=== PATIENT | male | born 1940 | race Caucasian/White ===

== ENCOUNTER 2017-03-27 14:43 | Emergency (ER) | payer MEDICARE ==
[~2017-03-27] VITALS: Ht 182.9 cm; Wt 81.6 kg
--- NOTE | ~2017-03-27 | CT4 ---
[facility] A Service of [facility] & [facility] RADIOLOGY TEXT RESULTS PATIENT: MARGARITA GROVE LOCATION: [facility] : 39 UNIT #: [id number] AGE: [address]: Morteza Barrios MD SEX: M ORDER DR: [id number] [facility] [address] [place], [place] [address] [id number] E MR#: [id number] Acc #: [id number] NAME: MARGARITA GROVE : 1940 SEX: M STUDY DATE/TIME: 03/27/2017 15:45 UNIT: [facility] ROOM: STUDY DESCRIPTION: CT Abd and Pelv Wo Cont Attending Physician: Morteza Barrios M.D. Referring Physician: No Primary Care Physician Ordering Physician: Morteza Barrios M.D. Primary Care Physician: No Primary Care Physician MEDICAL IMAGING REPORT This report is preliminary unless electronic signature is present EXAM CT abdomen and pelvis, 03/27/2017. HISTORY Pain. Hematuria since 11:30 today. Bleeding from penis times today. History of kidney stones. TECHNIQUE CT abdomen and pelvis performed without administration of oral or intravenous contrast. This CT exam was performed with one or more of the following radiation dose reduction techniques: automatic exposure control, adjustment of mA and/or kV according to patient size, and iterative reconstruction. COMPARISON No comparisons. Comparison to prior study is recommended if available. FINDINGS Emphysema at the lung bases. There is some mild bronchiectatic change as well without clear indication of mucous plugging. Dependent atelectasis. Trace pleural effusions, right greater than left. Not drainable fluid collections. Heart upper limits of normal in size to borderline enlarged. The liver is unremarkable. Uncomplicated cholelithiasis. Spleen, pancreas, adrenal glands unremarkable. Left kidney and ureter unremarkable to the level of the sigmoid colon. The most distal left ureter is poorly visualized. In region of the left ureterovesical junction, there is a large bladder diverticulum measuring 5.2 cm x 3.9 cm x 4.3 cm. There are 1 or 2 calculi in the dependent portion of this diverticulum measuring up to 7-8 mm in diameter. It is possible that the left ureter could be entering the diverticulum, but the distal left ureter is, as noted, very difficult to visualize. There is inflammatory haziness and stranding in the fat adjacent to this diverticulum and the diverticular wall appears mildly thickened. I do not see a focal STS. [facility] A Service of [facility] RADIOLOGY TEXT RESULTS PATIENT: MARGARITA GROVE LOCATION: [facility] : 39 UNIT #: [id number] AGE: [address]: Morteza Barrios MD SEX: M ORDER DR: suspicious mass lesion. Diverticular infection is a consideration. This might be further evaluated with contrast-enhanced study. There are multiple other smaller bladder diverticula bilaterally. The prostate is enlarged measuring approximately 6.1 cm x 5 cm x 7.3 cm. It exerts mass effect on the inferior bladder. Patient's hematuria could be a consequence of the abnormal left bladder diverticulum or the enlarged prostate. Correlate with serum PSA. Consider further evaluation with prostate ultrasound when clinically appropriate for the patient. The right kidney shows no hydronephrosis or nephrolithiasis. There is a large mildly complicated cyst exophytic from the lower pole measuring 8.8 cm x 9.5 cm x 8.5 cm. It contains some thin calcifications along its anterior inferior aspect probably in a septation. Best further evaluated with multiphase contrast-enhanced CT or ultrasound unless there are outside studies for comparison. There is no free fluid in the pelvis. CT PELVIS: No inguinal adenopathy. Bilateral inguinal hernias, more pronounced on the right than left. There is a long loop of distal small bowel extending into the right inguinal hernia. This loop measures approximately 15 cm in length. There is a much shorter knuckle of sigmoid colon extending into the left inguinal hernia. A very short loop of small bowel probably extends into the left inguinal hernia as well. There is no evidence of obstruction or incarceration. Incompletely visualized fluid density structure in the upper right hemiscrotum measuring at least 7.3 cm x 6.7 cm x 3.4 cm. Large right hydrocele could be considered. Cystic lesion within the scrotal contents could be considered. There is no pelvic or retroperitoneal adenopathy. The distal esophagus, stomach, and small bowel unremarkable beyond involvement in inguinal hernias as described. Appendix normal. Colon shows no suspicious abnormality. There is a large stool burden in the colon without pathologic dilatation. There is sigmoid diverticulosis, uncomplicated. The vascular structures show atherosclerotic arterial calcifications. No aneurysm. Bony structures show no acute abnormality. 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 Associated bilateral foraminal narrowing. No resulting spinal stenosis. IMPRESSION 1. Abnormal examination. Please see the complete dictation above for full details. There is no evidence of hydronephrosis or nephrolithiasis bilaterally. There is a left inferolateral bladder diverticulum measuring up to 5.2 cm in diameter. There is mild prominence of the diverticular wall and there is adjacent fat stranding and haziness. I do not see a distinct mural mass lesion. The adjacent inflammatory change may be an indication of underlying diverticular inflammation. Whether this relates to the patient's stated hematuria is unclear. In the absence of prior studies for comparison, this could be further evaluated with contrast-enhanced CT. Please note that the left kidney shows no hydronephrosis and there is no hydroureter. The distal left ureter beyond the level of the sigmoid colon is not clearly identified. It could be entering [facility] A Service of [facility] RADIOLOGY TEXT RESULTS PATIENT: MARGARITA GROVE [id number] 38 UNIT #: [id number] AGE: [address]: Morteza Barrios MD SEX: M ORDER DR: the above described inflamed left diverticulum. 2. Calculi within the left inflamed diverticulum, 1 or 2, measuring up to about 7-8 mm in diameter. 3. Multiple other smaller bladder diverticula without inflammatory change. 4. Enlarged prostate measuring up to 7.3 cm in maximum diameter. Exerting significant mass effect on inferior urinary bladder. Correlate with serum PSA. If warranted and when clinically appropriate for the patient, consider assessment with prostatic ultrasound. 5. Large right renal cyst exophytic from lower pole and measuring up to 9.5 cm in diameter. Along its anterior aspect, there are some curvilinear calcifications probably representing septal calcifications. I would favor that this is a mildly complicated cyst and in the absence of prior studies demonstrating stability, it is best further evaluated with multiphase contrast-enhanced CT or ultrasound. 6. Uncomplicated cholelithiasis. 7. Large incompletely visualized fluid density structure in the lower right inguinal canal/upper right hemiscrotum measuring up to at least 7.6 cm in diameter. This may reflect large right hydrocele or a cystic structure in the right milan scrotal contents. Again, if not previously characterized, it is best evaluated with ultrasound. 8. Prominent bilateral inguinal hernias, right larger than left. Approximately 15 cm long loop of distal small bowel in the right inguinal hernia without complication. [place] loop of small bowel and a knuckle of sigmoid colon in the left inguinal hernia without complication. 9. [id number] stool burden in the colon. This may be a reflection of constipation. It could be physiologic in nature. No obstructing process. No pathologic dilatation. 10. Uncomplicated sigmoid diverticulosis. 11. Emphysema and dependent atelectasis lung bases. 12. Trace bilateral pleural effusions, right greater than left. Not drainable fluid collections. 13. 1 cm anterolisthesis, L5 on S1, due to bilateral L5 spondylolysis. No acute-appearing bony abnormality. Dictated by... Keith Knight M.D. THIS IS AN ELECTRONICALLY VERIFIED REPORT Keith Knight M.D. at 03/29/2017 7:36 AM RICH/vaughn TD: 03/28/2017 05:56 JOB #: [id number] MEDICAL IMAGING REPORT [facility]. [facility] A Service of [facility] & [facility] RADIOLOGY TEXT RESULTS PATIENT: MARGARITA GROVE LOCATION: [facility] #: [id number] : 38 UNIT #: [id number] AGE: [address]: Morteza Barrios MD SEX: M ORDER DR: Page 1 of 1 COPY
[2017-03-27 15:32] LABS: BASOPHIL# 0.1 X10e3 (0-0.3); BASOPHIL% 1.1 % (0-2.5); EOSINOPHIL# 0.1 X10e3 (0-0.7); HEMATOCRIT 40.1 % (38.0-50.0); HEMOGLOBIN 13.5 gm/dL (13.0-16.0); LYMPHOCYTE# 1.1 X10e3 (1.0-3.5); LYMPHOCYTE% 15.2 % (17.0-45.0); MEAN CELL VOLUME 86.2 FL (83-96); MEAN CORPUSCULAR HEMOGLOBIN 29.1 PG (28-34); MEAN CORPUSCULAR HGB CONC 33.8 g/dL (30-36); MEAN PLATELET VOLUME 8.5 FL (6.5-11.5); MONOCYTE# 0.4 X10e3 (0-1.0); MONOCYTE% 5.3 % (3.0-12.0); NEUTROPHIL# 5.6 X10e3 (1.5-7.1); NEUTROPHIL% 76.4 % (40-75); PLATELET COUNT 167 X10e3 (140-420); RED BLOOD COUNT 4.65 X10e (3.90-5.60); RED CELL DISTRIBUTION WIDTH 13.4 % (11.0-15.5); WHITE BLOOD COUNT 7.3 X10e3 (4.0-10.5)
[2017-03-27 15:36] LABS: URINE SOURCE CLEAN CATCH
[2017-03-27 15:37] LABS: DIFF IND NO
[2017-03-27 15:46] LABS: URINE APPEARANCE TURBID; URINE BILIRUBIN NEG (NEG); URINE BLOOD 3+ (NEG); URINE COLOR DK YELLOW; URINE GLUCOSE NEG (NEG); URINE KETONE NEG (NEG); URINE LEUKOCYTE ESTERASE 3+ (NEG); URINE NITRATE POS (NEG); URINE PH 5.5 (5-8); URINE PROTEIN 2+ (NEG); URINE SPECIFIC GRAVITY 1.018 (1.003-1.035)
[2017-03-27 15:51] LABS: CULTURE INDICATED? YES; URBCS1 AUWI INNUM /[HPF] (0-2); URINE SQUAMOUS EPITHELIAL CELL NONE SEEN /[HPF]; UWBCS1 AUWI INNUM (0-5)
[2017-03-27 16:00] LABS: URINE BACTERIA AUWI 1+ (NEGATIVE)
[2017-03-27 16:20] LABS: BILIRUBIN, DIRECT 0.1 mg/dL (0.0-0.2); BILIRUBIN,INDIRECT 0.6 mg/dL (0.0-0.9); BILIRUBIN,TOTAL 0.7 mg/dL (0.2-2.0); BUN/CREATININE RATIO 35.71; CALCIUM SERUM 8.9 mg/dL (8.4-10.2); CREATININE SERUM 0.7 mg/dL (0.6-1.4); GLOM FILT RATE Estimated 91.1 mL/min (>60); POTASSIUM 4.1 mmol/L (3.5-5.1); PROTEIN TOTAL SERUM 6.4 g/dL (6.0-8.3)
== END 2017-03-27 17:50 | disposition home or self-care (01) ==
LOC: CED 14:43
PROVIDERS: Emergency Medicine
DX: N28.1 Cyst of kidney, acquired (principal); N32.3 Diverticulum of bladder; K59.00 Constipation, unspecified; I11.0 Hypertensive heart disease with heart failure; I50.9 Heart failure, unspecified; F17.210 Nicotine dependence, cigarettes, uncomplicated; Z79.82 Long term (current) use of aspirin
CPT/HCPCS: 36415; 74176; 80048; 80076; 81003; 85025; 87086; 96361; 96365; 99284; J0696

== ENCOUNTER 2017-03-28 09:24 | Emergency (ER) | payer MEDICARE ==
[~2017-03-28] VITALS: Ht 182.9 cm; Wt 81.6 kg
--- NOTE | ~2017-03-28 | CO ---
Unit #: [id number] #: [id number] Patient: MARGARITA GROVE [id number] [address] [place], [place] [address] [id number] E MR#: [id number] NAME: MARGARITA GROVE ROOM: Age: 76 Sex: M Admission Date: 03/28/2017 : 1940 Attending Physician: Tammie Daugherty M.D. Primary Care Physician: Primary Care Physician No Consultation Date: 03/28/2017 CONSULTATION REPORT REASON FOR CONSULTATION Urinary retention. HISTORY OF PRESENT ILLNESS Consulted for catheter placement in this 76-year-old gentleman from [place], who presents to the emergency department yesterday with gross hematuria. A CT scan was done as noted below and which I have personally reviewed. He was treated with IV fluids and Rocephin and his urine cleared. Unfortunately after 5 hours in the emergency department and discharged home, recommending follow up cystoscopy in [place] per telephone consult with another urologist. He proceeded to have bleeding at home and presented today with urinary retention. He is voiding again clear, but dribbling with overflow and is in severe pain. His history is pertinent for large volume BPH and he is taking Hytrin and Flomax regularly. He denies history of urinary infection. PAST MEDICAL HISTORY Notable for coronary artery disease, CHF, hypertension. PAST SURGICAL HISTORY CABG and kidney stone surgery. PAST SURGICAL HISTORY MEDICATIONS None recorded. ALLERGIES None known. PHYSICAL EXAMINATION GENERAL: He is alert and oriented. VITAL SIGNS: Temperature 99, pulse 101, blood pressure 150/86, respirations 16. ABDOMEN: The patient's abdomen is distended. : Phallus is largely concealed due to a large right-sided hydrocele and left inguinal hernia. Digital deferred. EXTREMITIES: No edema. NEUROLOGIC: Intact. DIAGNOSTIC STUDIES LABORATORY RESULTS: Currently unavailable to direct access. Reportedly per ER physician, urinalysis yesterday consistent with infection as it is Unit #: [id number] #: [id number] Patient: MARGARITA GROVE today. IMAGING STUDIES: X-ray was able to review and indeed shows normal upper tracts. Large left-sided bladder diverticulum up to 7.3 cm containing 2 stones up to 7 to 8 mm. There is a 9.5 cm cyst of the lower pole of left kidney with slight calcification, Bosniak IIF. Bilateral inguinal hernias. Large right-sided hydrocele. Prostate itself is markedly enlarged. IMPRESSION Urinary retention due to large volume benign prostatic hyperplasia and alpha blockers. Treatment with sterile prep and drape, an 18-German coude catheter easily placed with initial residual volume. He has drained only about 700 mL and it is fairly clear. PLAN We will discharge home with Norman catheter leg and night bags. We will start him on finasteride for long-term use, having review complications of this. He is to continue other medications. Recommend discharge also with Keflex for now and to call with the results of urine cultures. He can attend his grandson's wedding and returned to [place] for voiding trial and cystoscopy. We will recommend he keep a disc of his CT scan also. Dictated by... Dio Ryder M.D. DIONNE/monik TD: 03/28/2017 20:19 JOB #: [id number] CONSULTATION REPORT Page 1 of 1 X Dio Ryder MD X CONSULTATION REPORT
[2017-03-28 10:48] LABS: URINE SOURCE CLEAN CATCH
[2017-03-28 10:55] LABS: URINE APPEARANCE TURBID; URINE BILIRUBIN NEG (NEG); URINE BLOOD 3+ (NEG); URINE COLOR YELLOW; URINE GLUCOSE NEG (NEG); URINE KETONE 2+ (NEG); URINE LEUKOCYTE ESTERASE 3+ (NEG); URINE NITRATE POS (NEG); URINE PH 5.5 (5-8); URINE PROTEIN 1+ (NEG); URINE UROBILINOGEN 0.2 MG/DL (NEG)
[2017-03-28 10:57] LABS: CULTURE INDICATED? YES; URINE SQUAMOUS EPITHELIAL CELL NONE SEEN /[HPF]; UWBCS1 AUWI INNUM (0-5)
[2017-03-28 11:12] LABS: URINE AMORPHOUS SEDIMENT AMORP URATES; URINE BACTERIA AUWI 1+ (NEGATIVE); URINE CRYSTALS CALCIUM OXALATE /[HPF]; URINE YEAST PRESENT
[2017-03-28 12:00] LABS: BASOPHIL% 0.8 % (0-2.5); EOSINOPHIL% 0.1 % (0.0-7.0); HEMATOCRIT 36.2 % (38.0-50.0); HEMOGLOBIN 12.2 gm/dL (13.0-16.0); LYMPHOCYTE# 0.3 X10e3 (1.0-3.5); LYMPHOCYTE% 4.6 % (17.0-45.0); MEAN CELL VOLUME 87.5 FL (83-96); MEAN CORPUSCULAR HEMOGLOBIN 29.5 PG (28-34); MEAN CORPUSCULAR HGB CONC 33.7 g/dL (30-36); MEAN PLATELET VOLUME 8.1 FL (6.5-11.5); MONOCYTE# 0.2 X10e3 (0-1.0); MONOCYTE% 4.4 % (3.0-12.0); NEUTROPHIL% 90.1 % (40-75); PLATELET COUNT 138 X10e3 (140-420); RED BLOOD COUNT 4.14 X10e (3.90-5.60); RED CELL DISTRIBUTION WIDTH 13.2 % (11.0-15.5); WHITE BLOOD COUNT 5.5 X10e3 (4.0-10.5)
[2017-03-28 12:07] LABS: DIFF IND NO
[2017-03-28 12:12] LABS: PROTHROMBIN TIME (PATIENT) 10.8 SECONDS (10.0-11.7)
[2017-03-28 12:29] LABS: ALBUMIN SERUM 3.8 g/dL (3.5-5.0); BILIRUBIN,TOTAL 0.9 mg/dL (0.2-2.0); BUN/CREATININE RATIO 24.44; CALCIUM SERUM 8.4 mg/dL (8.4-10.2); CREATININE SERUM 0.9 mg/dL (0.6-1.4); GLOM FILT RATE Estimated 82.1 mL/min (>60); POTASSIUM 3.9 mmol/L (3.5-5.1)
== END 2017-03-28 15:51 | disposition home or self-care (01) ==
LOC: CED 09:24
PROVIDERS: Emergency Medicine
DX: N39.0 Urinary tract infection, site not specified (principal); R33.9 Retention of urine, unspecified; I10 Essential (primary) hypertension; Z95.1 Presence of aortocoronary bypass graft; Z87.442 Personal history of urinary calculi; Z79.82 Long term (current) use of aspirin
CPT/HCPCS: 36415; 80053; 81003; 85025; 85610; 87086; 96365; 96375; 96376; 99285; J0696; J2270; J2405; J3010